=== PATIENT | female | born 1950 | race Caucasian/White ===

== ENCOUNTER → 2017-06-22 06:16 | Outpatient (CLI) | payer OTHER ==
[~2017-06-22 06:16] MED LIST: ALTACE1.25 MG; ATORVASTATIN CA10 MG; GLIMEPIRIDE1 MG; JANUMET 50-1,01 EACH; LEVOXYL25 MCG; MUCINEX1200 MG PO; ZITHROMAX500 MG PO
== END | disposition home or self-care (01) ==
LOC: LAB 06:16
DX: E03.8 Other specified hypothyroidism (principal); E78.2 Mixed hyperlipidemia; I10 Essential (primary) hypertension; E11.65 Type 2 diabetes mellitus with hyperglycemia

== ENCOUNTER 2017-09-06 07:33 | Outpatient (CLI) | payer OTHER | END 2017-09-06 07:44 | disposition home or self-care (01) | LOC: SONOGRAMA 07:33 → MAMO-SONO 07:45 | DX: E04.2 Nontoxic multinodular goiter (principal) ==

== ENCOUNTER 2017-10-27 06:38 | Outpatient (CLI) | payer OTHER | END 2017-10-27 06:48 | disposition home or self-care (01) | LOC: LAB 06:38 | DX: E11.65 Type 2 diabetes mellitus with hyperglycemia (principal); E78.2 Mixed hyperlipidemia; I10 Essential (primary) hypertension; E55.9 Vitamin D deficiency, unspecified ==

== ENCOUNTER → 2018-03-01 06:11 | Outpatient (CLI) | payer OTHER | END | disposition home or self-care (01) | LOC: LAB 06:11 | DX: E55.9 Vitamin D deficiency, unspecified (principal); E11.65 Type 2 diabetes mellitus with hyperglycemia; E03.8 Other specified hypothyroidism; E78.2 Mixed hyperlipidemia; I10 Essential (primary) hypertension; N39.0 Urinary tract infection, site not specified ==

== ENCOUNTER 2018-07-14 06:47 | Outpatient (CLI) | payer OTHER | END 2018-07-14 07:09 | disposition home or self-care (01) | LOC: LAB 06:47 | DX: E03.8 Other specified hypothyroidism (principal); E11.65 Type 2 diabetes mellitus with hyperglycemia; E78.2 Mixed hyperlipidemia; I10 Essential (primary) hypertension ==

== ENCOUNTER 2018-10-26 06:24 | Outpatient (CLI) | payer OTHER | END 2018-10-26 06:35 | disposition home or self-care (01) | LOC: LAB 06:24 | DX: E55.9 Vitamin D deficiency, unspecified (principal); E78.2 Mixed hyperlipidemia; I10 Essential (primary) hypertension; E11.65 Type 2 diabetes mellitus with hyperglycemia ==

== ENCOUNTER 2019-03-08 06:18 | Outpatient (CLI) | payer OTHER | END 2019-03-08 06:29 | disposition home or self-care (01) | LOC: LAB 06:18 | DX: E55.9 Vitamin D deficiency, unspecified (principal); E11.65 Type 2 diabetes mellitus with hyperglycemia; I10 Essential (primary) hypertension; E78.2 Mixed hyperlipidemia ==

== ENCOUNTER → 2020-01-16 06:24 | Outpatient (CLI) | payer OTHER | END | disposition home or self-care (01) | LOC: LAB 06:24 | PROVIDERS: ATTEND Internal Medicine Endocrinology, Diabetes & Metabolism | DX: E11.65 Type 2 diabetes mellitus with hyperglycemia (principal); E78.2 Mixed hyperlipidemia; I10 Essential (primary) hypertension; E03.8 Other specified hypothyroidism ==

== ENCOUNTER 2020-01-29 16:12 | Outpatient (CLI) | payer OTHER | END 2020-01-29 16:16 | disposition home or self-care (01) | LOC: LAB 16:12 | PROVIDERS: ATTEND Radiology Diagnostic Radiology | DX: N20.0 Calculus of kidney (principal) ==

== ENCOUNTER 2020-01-30 07:17 | Outpatient (CLI) | payer OTHER | END 2020-01-30 07:20 | disposition home or self-care (01) | LOC: MRI 07:17 | DX: C54.9 Malignant neoplasm of corpus uteri, unspecified (principal) | CPT/HCPCS: 72197 ==

== ENCOUNTER 2020-02-08 06:14 | Outpatient (CLI) | payer OTHER | END 2020-02-08 06:41 | disposition home or self-care (01) | LOC: LAB 06:14 | PROVIDERS: ATTEND Specialist | DX: N39.0 Urinary tract infection, site not specified (principal); G54.1 Lumbosacral plexus disorders ==

== ENCOUNTER 2020-02-08 07:11 | Outpatient (CLI) | payer OTHER | END 2020-02-08 07:19 | disposition home or self-care (01) | LOC: TOM 07:11 | PROVIDERS: ATTEND Specialist | DX: R10.84 Generalized abdominal pain (principal); K76.0 Fatty (change of) liver, not elsewhere classified ==

== ENCOUNTER 2020-02-27 06:19 | Outpatient (CLI) | payer OTHER | END 2020-02-27 06:28 | disposition home or self-care (01) | LOC: LAB 06:19 | PROVIDERS: ATTEND Specialist | DX: D68.8 Other specified coagulation defects (principal); D69.3 Immune thrombocytopenic purpura; N39.0 Urinary tract infection, site not specified; I10 Essential (primary) hypertension; K76.89 Other specified diseases of liver; N95.1 Menopausal and female climacteric states; G47.01 Insomnia due to medical condition; G47.09 Other insomnia; D69.49 Other primary thrombocytopenia ==

== ENCOUNTER 2020-03-04 15:37 | Outpatient (CLI) | payer OTHER | END 2020-03-04 15:48 | disposition home or self-care (01) | LOC: RAD 15:37 | PROVIDERS: ATTEND Specialist | DX: I10 Essential (primary) hypertension (principal); I27.89 Other specified pulmonary heart diseases ==

== ENCOUNTER 2020-07-15 05:00 | Day surgery (SDC) | payer OTHER ==
[~2020-07-15 05:00] MED LIST changes: +LEVOXIL PO; +SYNTHROID100 MCG PO
== END 2020-07-15 12:15 | disposition home or self-care (01) ==
LOC: CIR.AMB 05:00
PROVIDERS: ATTEND Urology
DX: N13.5 Crossing vessel and stricture of ureter without hydronephrosis (principal); Z20.822 Contact with and (suspected) exposure to COVID-19